=== PATIENT | female | born 1940 | race Caucasian/White ===

== ENCOUNTER → 2017-06-08 | Outpatient (CLI) | payer MEDICARE | END | disposition home or self-care (01) | LOC: ROC 10:35 | PROVIDERS: ATTEND Radiology Radiation Oncology | DX: C34.32 Malignant neoplasm of lower lobe, left bronchus or lung (principal); C34.31 Malignant neoplasm of lower lobe, right bronchus or lung; C50.919 Malignant neoplasm of unspecified site of unspecified female breast; Z90.10 Acquired absence of unspecified breast and nipple; Z87.891 Personal history of nicotine dependence; Z99.81 Dependence on supplemental oxygen; Z79.82 Long term (current) use of aspirin; Z88.0 Allergy status to penicillin | CPT/HCPCS: G0463 ==

== ENCOUNTER → 2017-12-03 | Outpatient (CLI) | payer MEDICARE | END | disposition home or self-care (01) | LOC: ROC 10:50 | PROVIDERS: ATTEND Radiology Radiation Oncology | DX: Z08 Encounter for follow-up examination after completed treatment for malignant neoplasm (principal); C34.31 Malignant neoplasm of lower lobe, right bronchus or lung; Z88.0 Allergy status to penicillin; Z79.82 Long term (current) use of aspirin | CPT/HCPCS: G0463 ==

== ENCOUNTER → 2018-08-26 | Outpatient (CLI) | payer MEDICARE | END | disposition home or self-care (01) | LOC: ROC 08:05 | PROVIDERS: ATTEND Radiology Radiation Oncology | DX: C34.31 Malignant neoplasm of lower lobe, right bronchus or lung (principal); C34.32 Malignant neoplasm of lower lobe, left bronchus or lung | CPT/HCPCS: G0463 ==

== ENCOUNTER → 2018-09-27 | Outpatient (CLI) | payer MEDICARE | END | disposition home or self-care (01) | LOC: ROC 08:48 | PROVIDERS: ATTEND Radiology Radiation Oncology | DX: Z08 Encounter for follow-up examination after completed treatment for malignant neoplasm (principal); C34.32 Malignant neoplasm of lower lobe, left bronchus or lung; C34.31 Malignant neoplasm of lower lobe, right bronchus or lung; Z88.0 Allergy status to penicillin; Z88.2 Allergy status to sulfonamides | CPT/HCPCS: G0463 ==

== ENCOUNTER 2018-12-01 10:45 | Outpatient (CLI) | payer MEDICARE | END 2018-12-01 23:59 | disposition home or self-care (01) | LOC: ROC 10:45 | PROVIDERS: ATTEND Radiology Radiation Oncology | DX: C34.32 Malignant neoplasm of lower lobe, left bronchus or lung (principal) | CPT/HCPCS: G0463 ==

== ENCOUNTER → 2019-05-09 | Outpatient (CLI) | payer MEDICARE | END | disposition home or self-care (01) | LOC: ROC 07:33 | PROVIDERS: ATTEND Radiology Radiation Oncology | DX: C34.32 Malignant neoplasm of lower lobe, left bronchus or lung (principal) | CPT/HCPCS: G0463 ==

== ENCOUNTER → 2019-11-02 | Outpatient (CLI) | payer MEDICARE | END | disposition home or self-care (01) | LOC: ROC 08:55 | PROVIDERS: ATTEND Radiology Radiation Oncology | DX: C34.32 Malignant neoplasm of lower lobe, left bronchus or lung (principal); Z85.828 Personal history of other malignant neoplasm of skin | CPT/HCPCS: G0463 ==

== ENCOUNTER 2021-06-21 08:20 | Outpatient (CLI) | payer MEDICARE | END 2021-06-21 23:59 | disposition home or self-care (01) | LOC: ROC 08:20 | PROVIDERS: ATTEND Radiology Radiation Oncology | DX: Z08 Encounter for follow-up examination after completed treatment for malignant neoplasm (principal); Z85.118 Personal history of other malignant neoplasm of bronchus and lung | CPT/HCPCS: G0463 ==

== ENCOUNTER 2021-07-19 09:42 | Outpatient (CLI) | payer MEDICARE | END 2021-07-19 23:59 | disposition home or self-care (01) | LOC: ROC 09:42 | PROVIDERS: ATTEND Radiology Radiation Oncology | DX: Z08 Encounter for follow-up examination after completed treatment for malignant neoplasm (principal); Z85.118 Personal history of other malignant neoplasm of bronchus and lung | CPT/HCPCS: G0463 ==